=== PATIENT | female | born 1945 | race Caucasian/White ===

== ENCOUNTER 2021-11-24 19:05 | Emergency (ER) | payer OTHER ==
[~2021-11-24] VITALS: Ht 149.9 cm; Wt 47.6 kg
[2021-11-24 19:30] LABS: BASOPHILS % 0.5 % (0.0-1.0); EOSINOPHILS % 0.2 % (0.0-6.0); HEMATOCRIT 39.4 % (34.2-44.1); HEMOGLOBIN 12.6 g/dL (12.0-16.0); LYMPHOCYTES # (AUTO) 0.3 (1.0-3.2); LYMPHOCYTES % 6.1 % (18.0-39.1); MEAN CORPUSCULAR HEMOGLOBIN 28.8 pg (28-32); MEAN CORPUSCULAR VOLUME 90.2 fL (81-99); MONOCYTES # (AUTO) 0.9 (0.2-0.8); MONOCYTES % 19.3 % (4.4-11.3); NEUTROPHILS # (AUTO) 3.2 (2.1-6.9); NEUTROPHILS % 73.4 % (38.7-80.0); PLATELET COUNT 271 x10e3/uL (140-360); RED BLOOD COUNT 4.37 x10e6/uL (3.6-5.1); RED CELL DISTRIBUTION WIDTH 13.1 % (11.7-14.4)
[2021-11-24 19:51] LABS: ALBUMIN/GLOBULIN RATIO 1.4 (0.8-2.0); ANION GAP 10.9 mmol/L (8-16); CREATININE, SERUM 0.74 mg/dL (0.57-1.11); POTASSIUM 3.9 mmol/L (3.5-5.1)
[2021-11-24 20:02] LABS: CLARITY,URINE SL CLOUDY (CLEAR); COLOR,URINE YELLOW (YELLOW)
[2021-11-24 20:03] LABS: KETONES,URINE 2+ (NEGATIVE); LEUKOCYTE ESTERASE ,URINE NEGATIVE (NEGATIVE); NITRITE,URINE NEGATIVE (NEGATIVE); PROTEIN,URINE DIPSTICK NEGATIVE (NEGATIVE); URINE UROBILINOGEN 0.2 mg/dL (0.2 - 1)
[2021-11-24 20:12] LABS: BACTERIA,URINE RARE /HPF; EPITHELIAL CELLS,URINE FEW /LPF
== END 2021-11-24 21:21 | disposition home or self-care (01) ==
LOC: ER 19:30
DX: R42 Dizziness and giddiness (principal); M54.2 Cervicalgia
CPT/HCPCS: 36415; 70450; 71045; 80053; 81001; 85025; 99284